=== PATIENT | male | born 1980 | race Caucasian/White ===

== ENCOUNTER 2020-04-22 00:19 | Emergency (ER) | payer OTHER ==
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
--- NOTE | 2020-06-02 09:31 | CR ---
PROCEDURE INFORMATION: Exam: XR Acromioclavicular Joints Exam date and time: 04/22/2020 2:10 AM Age: 39 years old Clinical indication: Injury or trauma; Other: Unknown; Blunt trauma (contusions or hematomas); Shoulder; Left TECHNIQUE: Imaging protocol: XR acromioclavicular joints. Bilateral exam. COMPARISON: No relevant prior studies available. FINDINGS: Bones/joints: There is a grade 2 acromioclavicular separation on the left as seen without weights but this appears to is progressed grade 3 with weights. There is no evidence of acute fracture. Soft tissues: No soft tissue swelling is identified. IMPRESSION: Grade 3 left AC separation with weights. Thank you for allowing us to participate in the care of your patient. Dictated and Authenticated by: Kostas Kim MD 06/01/2020 3:17 PM Central Time ([place] & [place]) MARANDA
--- NOTE | 2020-06-02 09:34 | CR ---
PROCEDURE INFORMATION: Exam: XR Left Shoulder Exam date and time: 04/22/2020 2:10 AM Age: 39 years old Clinical indication: Injury or trauma; Other: Unknown; Blunt trauma (contusions or hematomas); Shoulder; Left TECHNIQUE: Imaging protocol: XR Left shoulder. Views: 2 or more views. COMPARISON: No relevant prior studies available. FINDINGS: Bones/joints: There is a grade 3 left acromioclavicular shoulder separation. There is no evidence of acute fracture. Soft tissues: No soft tissue swelling is identified. IMPRESSION: Grade 3 AC separation on the left. Thank you for allowing us to participate in the care of your patient. Dictated and Authenticated by: Kostas Kim MD 06/01/2020 3:07 PM Central Time ([place] & [place]) [place]ANDA
== END 2020-04-22 03:35 | disposition home or self-care (01) ==
LOC: JD.ED 00:19
DX: S43.102A Unspecified dislocation of left acromioclavicular joint, initial encounter (principal); Z87.891 Personal history of nicotine dependence; W19.XXXA Unspecified fall, initial encounter
CPT/HCPCS: 73030-26-LT; 73030-LT; 73050; 73050-26; 99282; 99283

== ENCOUNTER 2023-01-15 09:34 | Emergency (ER) | payer OTHER ==
[2023-01-15] MEDS ORDERED: Proparacaine 0.5% Ophth Soln 15 ML Bottle EYELF ONE (10:04)
[2023-01-15] MEDS ORDERED: prednisoLONE Acetate 1% Ophth Susp 5 ML Bottle EYEBOTH ONE ×3 (10:39→11:00)
== END 2023-01-15 11:12 | disposition home or self-care (01) ==
LOC: JD.ED 09:34
DX: H10.213 Acute toxic conjunctivitis, bilateral (principal); F17.210 Nicotine dependence, cigarettes, uncomplicated
CPT/HCPCS: 99283; A9270; J3490